=== PATIENT | female | born 1990 | race Two or more races ===

== ENCOUNTER 2023-03-19 09:31 | Day surgery (SDC) | payer OTHER ==
[~2023-03-19 09:31] MED LIST: PRENA1 CHEW TA1.4 MG
== END 2023-03-19 15:40 | disposition home or self-care (01) ==
LOC: CIR.AMB 09:31
PROVIDERS: ATTEND Orthopaedic Surgery Hand Surgery
DX: D21.12 Benign neoplasm of connective and other soft tissue of left upper limb, including shoulder (principal); R22.32 Localized swelling, mass and lump, left upper limb; Z20.822 Contact with and (suspected) exposure to COVID-19